=== PATIENT | female | born 1955 | race Caucasian/White ===

== ENCOUNTER 2023-09-29 09:00 | Emergency (ER) | payer MEDICARE, BC ==
[~2023-09-29] VITALS: Ht 160 cm; Wt 64.9 kg
[2023-09-29 09:10] VITALS: BP 137/67; TEMP 98.4; O2SAT 100
[2023-09-29] MEDS ORDERED: ACETAMINOPHEN ES 500 MG TABLET ONE (09:30)
[2023-09-29] MEDS: ACETAMINOPHEN ES 500 MG TABLET PO ONE (09:32)
[2023-09-29] MEDS ORDERED: LIDOCAINE 1% INJ 50 ML MDV IJ ONE (09:36)
[2023-09-29] MEDS ORDERED: CEPHALEXIN MONOHYDRATE 500 MG CAPSULE PO ONE (10:01)
[2023-09-29] MEDS: CEPHALEXIN MONOHYDRATE 500 MG CAPSULE PO ONE (10:02)
[2023-09-29] MEDS ORDERED: CEPH500C2 PO (10:04)
== END 2023-09-29 10:11 | disposition home or self-care (01) ==
LOC: ER 09:09
DX: S61.011A Laceration without foreign body of right thumb without damage to nail, initial encounter (principal); J45.909 Unspecified asthma, uncomplicated; K21.9 Gastro-esophageal reflux disease without esophagitis; E78.00 Pure hypercholesterolemia, unspecified; M79.7 Fibromyalgia; W23.0XXA Caught, crushed, jammed, or pinched between moving objects, initial encounter; Y93.89 Activity, other specified; Y92.89 Other specified places as the place of occurrence of the external cause; Y99.8 Other external cause status
CPT/HCPCS: 12002; 73130; 99283; J3490